=== PATIENT | male | born 1990 | race Caucasian/White ===

== ENCOUNTER 2024-08-25 16:06 | Emergency (ER) | payer OTHER, SELFPAY ==
[2024-08-25] VITALS (7 sets, daily range): BP systolic 127–149; BP diastolic 83–99; PULSE 89–97; RESP 15–18; TEMP 36.2–36.6; O2SAT 99–100
--- NOTE | 2024-08-25 17:55 | PC.NURSE ---
Brien from [place] [facility] called requesting pt update. Pt not in room yet, told to call w/ any questions: [phone]
--- NOTE | 2024-08-25 18:05 | ED.CHESTPAIN ---
HPI - Chest Pain General Chief Complaint: Dizziness <Rosa Maria Hernández APRN - Last Filed: 08/25/24 18:10> Stated Complaint: dizziness after cocaine <Rosa Maria Hernández APRN - Last Filed: 08/25/24 18:10> Time Seen by Provider: 08/25/24 17:50 <Rosa Maria Hernández APRN - Last Filed: 08/25/24 18:10> Focused HPI: Patient is a 33-year-old male who presents to the ER after ?doing too much coke. He reports he snorted and ate it this time. Patient reports he immediately felt dizzy and has started experiencing chest heaviness and slight shortness of breath since then. He reports he used these drugs around 3:30 p.m. Patient is unsure whether not this cocaine was laced with anything else, but he thinks his symptoms are due to the large amount he used. He denies any other medical history besides having hiatal hernia repair approximately 3 and half weeks ago. GENERAL: Well-appearing, well-nourished, and in no acute distress. HEAD: Normocephalic, atraumatic. CHEST: Clear to auscultation. ?No respiratory distress. HEART: Regular rate and rhythm.? NEURO: ?Alert and oriented x3. Patient screened in triage and initial orders placed.? ?Additional care and disposition to be based upon?diagnostic testing and treatment. <Rosa Maria Hernández APRN - Last Filed: 08/25/24 18:10> History of Present Illness HPI narrative: Agree with the above HPI. Of note, patient had a hiatal hernia repair at [facility] 3 weeks ago. He does have 2 incisions to his abdomen with some dehiscence but followed up with his surgeon last week which states they are healing ok. No fevers or remarkable drainage. Patient also notes he had 3 beers throughout the day today. He normally drinks once a week. <Margarita Graham PA-C - Last Filed: 08/25/24 22:13> Related Data Allergies/Adverse Reactions: Allergies Allergy/AdvReac Type Severity Reaction Status Date / Time benzoyl peroxide Allergy Hives Verified 08/25/24 18:20 <Rosa Maria Hernández APRN - Last Filed: 08/25/24 18:10> Review of Systems Review of Systems: All systems reviewed & are unremarkable except as noted in HPI and below <Margarita Graham PA-C - Last Filed: 08/25/24 22:13> Exam Narrative: GENERAL: Well-appearing, well-nourished, and in no acute distress. HEAD: Normocephalic, atraumatic. EYES: Dilated pupils, PERRLA, EOMI ENT: Nares clear, no rhinorrhea or epistaxis. Mucous membranes moist. NECK: Supple. CHEST: Clear to auscultation. No respiratory distress. HEART: Regular rate and rhythm. No murmur heard. Normal peripheral pulses. ABDOMEN: Soft, nontender, nondistended, normal active bowel sounds. EXTREMITIES: Normal range of motion. No edema. Negative Homans bilaterally SKIN: Several small postoperative incisions, most of which are healing well. Mild wound dehiscence to an incision to the RUQ and LUQ, no deep structures or foreign bodies visualized, no surrounding erythema or warmth, no fluctuance or induration. NEURO: No focal deficits. Alert and oriented x3 <Margarita Graham PA-C - Last Filed: 08/25/24 22:13> Course Vital Signs Vital signs: Vital Signs Temperature 97.5 F L 08/25/24 16:26 Pulse Rate 97 08/25/24 16:26 Respiratory Rate 18 08/25/24 16:26 Blood Pressure 149/99 H 08/25/24 16:26 Pulse Oximetry 99 08/25/24 16:26 Oxygen Delivery Room Air 08/25/24 16:26 Temperature 97.8 F 08/25/24 18:21 Pulse Rate 91 08/25/24 19:44 Respiratory Rate 17 08/25/24 19:44 Blood Pressure 133/89 08/25/24 19:44 Pulse Oximetry 99 08/25/24 19:44 Oxygen Delivery Room Air 08/25/24 18:21 <Rosa Maria Hernández APRN - Last Filed: 08/25/24 18:10> Vital Signs Temperature 97.5 F L 08/25/24 16:26 Pulse Rate 97 08/25/24 16:26 Respiratory Rate 18 08/25/24 16:26 Blood Pressure 149/99 H 08/25/24 16:26 Pulse Oximetry 99 08/25/24 16:26 Oxygen Delivery Room Air 08/25/24 16:26 Temperature 97.8 F 08/25/24 18:21 Pulse Rate 91 08/25/24 19:44 Respiratory Rate 17 08/25/24 19:44 Blood Pressure 133/89 08/25/24 19:44 Pulse Oximetry 99 08/25/24 19:44 Oxygen Delivery Room Air 08/25/24 18:21 <Margarita Graham PA-C - Last Filed: 08/25/24 22:13> MDM - Chest Pain MDM Narrative Medical decision making narrative: 33-year-old male presents to emergency department for concerns for cocaine overdose after using 5 g of cocaine over the past 2 days. His last use was at 3:30 p.m.. States 10-15 minutes after he used cocaine at 3:30 a.m. he began developing chest tightness, dizziness and mild shortness of breath. He states he is having very mild residual chest tightness, the lightheadedness has since improved but he is having residual nausea. Triage vitals with elevated blood pressure, otherwise unremarkable. Exam is significant for the above. Notably patient underwent hiatal hernia repair [facility] 3 weeks ago. He does have 2 wounds to his abdomen with poor wound closure as noted in exam, however no deep structures or foreign bodies visualized there are is no secondary signs of infection. Patient states that he followed up with his surgeon last week regarding his wounds and was told they are healing well and to apply Band-Aids. EKG shows normal sinus rhythm with rate of 74, normal [place] interval, normal QRS duration, normal QTC, nonspecific T-wave abnormalities, no ST elevations or depressions. Troponin and delta troponin are within normal limits. D-dimer less than 0.27, wells score is low risk. Chest x-ray shows no acute cardiopulmonary findings. CK within normal limits. UDS positive for cocaine and marijuana. Patient updated on results. Presentation consistent with cocaine abuse. He received IV fluids with improvement. Notably, patient did develop a warm and blanching erythematous rash to his bilateral upper and lower extremities. Rash is not itchy and nontender. I suspect this is secondary to vascular spasms from cocaine use. Overall, patient is reporting significant improvement. He is ready to be discharged home. I advised him to discontinue all drug use and follow-up with a surgeon regarding his wounds. Discussed return precautions. He is agreeable with the plan verbalized understanding. Discharged in stable condition. <Margarita Graham PA-C - Last Filed: 08/25/24 22:13> Lab Data Result diagrams: 08/25/24 18:29 08/25/24 18:29 <Rosa Maria Hernández APRN - Last Filed: 08/25/24 18:10> Labs: Lab Results 08/25/24 08/25/24 08/25/24 Range/Units 18:29 20:36 21:11 WBC 11.3 H (4.5-10.0) K/mm3 RBC 5.38 (4.6-6.20) M/mm3 Hgb 14.5 (14.0-18.0) g/dL Hct 45.1 (42.0-52.0) % MCV 83.8 (80-100) fl MCH 27.0 (26-34) pg MCHC 32.2 (32-36) g/dl RDW 14.2 (11.5-14.5) % Plt Count 326 (150-375) k/mm3 MPV 9.8 (7.4-10.4) fl Immature Gran % (Auto) 0.4 (0-0.5) % Neut % (Auto) 77.9 H (45.5-73.1) % Lymph % (Auto) 12.9 L (18.3-44.2) % [place] % (Auto) 6.8 (2.6-8.5) % Eos % (Auto) 1.7 (0-4.4) % Baso % (Auto) 0.3 (0.2-1.2) % Lymph # (Auto) 1.45 (0.9-3.2) K/mm3 [place] # (Auto) 0.8 H (0.1-0.6) K/mm3 Eos # (Auto) 0.2 (0-0.3) K/mm3 Baso # (Auto) 0.0 (0.0-0.1) K/mm3 Abs Immat Gran (auto) 0.04 H (0.00-0.031) K/mm3 Absolute Neuts (auto) 8.8 H (1.3-6.7) K/mm3 Absolute Nucleated RBC 0.000 (0.0-0.012) K/mm3 Nucleated RBC % 0.0 (0.0-0.2) % PT 14.5 (11.1-14.7) Seconds INR 1.1 APTT 26.7 (22.3-36.8) Seconds D-Dimer < 0.27 (<0.48) ug/mL Sodium 138 (137-145) mmol/L Potassium 3.9 (3.4-5.0) mmol/L Chloride 100 (98-107) mmol/L Carbon Dioxide 22 (22-30) mmol/L Anion Gap 16 H (4-12) mmol/L BUN 14 (9-20) mg/dL Creatinine 0.87 (0.7-1.3) mg/dL Estim Creat Clear Calc 114 ml/min Estimated GFR > 60 (59 - ) Glucose 92 (65-110) mg/dL Calcium 10.0 (8.4-10.2) mg/dL Total Bilirubin 1.0 (0.2-1.3) mg/dL AST 26 (17-59) U/L ALT 22 (6-50) U/L Alkaline Phosphatase 88 (38-126) U/L Total Creatine Kinase 163 (55-170) U/L Troponin I < 0.012 < 0.012 (0.000-0.034) ng/mL Total Protein 8.0 (6.3-8.2) g/dL Albumin 4.8 (3.5-5.1) g/dL Urine Color Yellow (Yellow) Urine Appearance Clear (Clear) Urine pH 5.5 (5.0-9.0) Ur Specific [place] 1.008 (1.001-1.035) Urine Protein Negative (Negative) mg/dL Urine Glucose (UA) Negative (Negative) mg/dL Urine Ketones 2+ H (Negative) mg/dL Ur Blood (Man) Negative (Negative) Urine Nitrate Negative (Negative) Urine Bilirubin Negative (Negative) Urine Urobilinogen 0.2 (<2.0) mg/dL Leukocyte Esterase Rfl Negative (Negative) MIRNA/UL Urine Opiates Screen Negative (Negative) Urine Methadone Screen Negative (Negative) Ur Barbiturates Screen Negative (Negative) Ur Phencyclidine Scrn Negative (Negative) Ur Amphetamine Screen Negative (Negative) U Benzodiazepines Scrn Negative (Negative) Urine Cocaine Screen Positive A (Negative) U Cannabinoids Screen Positive A (Negative) <Rosa Maria Hernández, BD [employer] - Last Filed: 08/25/24 18:10> Lab Results 08/25/24 08/25/24 08/25/24 Range/Units 18:29 20:36 21:11 WBC 11.3 H (4.5-10.0) K/mm3 RBC 5.38 (4.6-6.20) M/mm3 Hgb 14.5 (14.0-18.0) g/dL Hct 45.1 (42.0-52.0) % MCV 83.8 (80-100) fl MCH 27.0 (26-34) pg MCHC 32.2 (32-36) g/dl RDW 14.2 (11.5-14.5) % Plt Count 326 (150-375) k/mm3 MPV 9.8 (7.4-10.4) fl Immature Gran % (Auto) 0.4 (0-0.5) % Neut % (Auto) 77.9 H (45.5-73.1) % Lymph % (Auto) 12.9 L (18.3-44.2) % [place] % (Auto) 6.8 (2.6-8.5) % Eos % (Auto) 1.7 (0-4.4) % Baso % (Auto) 0.3 (0.2-1.2) % Lymph # (Auto) 1.45 (0.9-3.2) K/mm3 [place] # (Auto) 0.8 H (0.1-0.6) K/mm3 Eos # (Auto) 0.2 (0-0.3) K/mm3 Baso # (Auto) 0.0 (0.0-0.1) K/mm3 Abs Immat Gran (auto) 0.04 H (0.00-0.031) K/mm3 Absolute Neuts (auto) 8.8 H (1.3-6.7) K/mm3 Absolute Nucleated RBC 0.000 (0.0-0.012) K/mm3 Nucleated RBC % 0.0 (0.0-0.2) % PT 14.5 (11.1-14.7) Seconds INR 1.1 APTT 26.7 (22.3-36.8) Seconds D-Dimer < 0.27 (<0.48) ug/mL Sodium 138 (137-145) mmol/L Potassium 3.9 (3.4-5.0) mmol/L Chloride 100 (98-107) mmol/L Carbon Dioxide 22 (22-30) mmol/L Anion Gap 16 H (4-12) mmol/L BUN 14 (9-20) mg/dL Creatinine 0.87 (0.7-1.3) mg/dL Estim Creat Clear Calc 114 ml/min Estimated GFR > 60 (59 - ) Glucose 92 (65-110) mg/dL Calcium 10.0 (8.4-10.2) mg/dL Total Bilirubin 1.0 (0.2-1.3) mg/dL AST 26 (17-59) U/L ALT 22 (6-50) U/L Alkaline Phosphatase 88 (38-126) U/L Total Creatine Kinase 163 (55-170) U/L Troponin I < 0.012 < 0.012 (0.000-0.034) ng/mL Total Protein 8.0 (6.3-8.2) g/dL Albumin 4.8 (3.5-5.1) g/dL Urine Color Yellow (Yellow) Urine Appearance Clear (Clear) Urine pH 5.5 (5.0-9.0) Ur Specific [place] 1.008 (1.001-1.035) Urine Protein Negative (Negative) mg/dL Urine Glucose (UA) Negative (Negative) mg/dL Urine Ketones 2+ H (Negative) mg/dL Ur Blood (Man) Negative (Negative) Urine Nitrate Negative (Negative) Urine Bilirubin Negative (Negative) Urine Urobilinogen 0.2 (<2.0) mg/dL Leukocyte Esterase Rfl Negative (Negative) MIRNA/UL Urine Opiates Screen Negative (Negative) Urine Methadone Screen Negative (Negative) Ur Barbiturates Screen Negative (Negative) Ur Phencyclidine Scrn Negative (Negative) Ur Amphetamine Screen Negative (Negative) U Benzodiazepines Scrn Negative (Negative) Urine Cocaine Screen Positive A (Negative) U Cannabinoids Screen Positive A (Negative) <Margarita Graham PA-C - Last Filed: 08/25/24 22:13> Discharge Plan Discharge Clinical Impression: Cocaine abuse <Rosa Maria Hernández APRN - Last Filed: 08/25/24 18:10> Patient Disposition: Home, Self-Care <Rosa Maria Hernández APRN - Last Filed: 08/25/24 18:10> Condition: Stable <Rosa Maria Hernández APRN - Last Filed: 08/25/24 18:10> Instructions: Antibiotic Form, Cocaine Use Disorder (ED) <Rosa Maria Hernández APRN - Last Filed: 08/25/24 18:10> Additional Instructions: Please stop using drugs. Please make sure to follow-up with your surgeon regarding your wounds. Return to the emergency department if you develop chest pain, shortness of breath, redness, drainage from her wounds, fever or other concerning symptoms. <Rosa Maria Hernández APRN - Last Filed: 08/25/24 18:10> Patient Language: Fijian <Rosa Maria Hernández APRN - Last Filed: 08/25/24 18:10> Follow-up/Referrals: Blake,Andrés Cordova MD [Non-Staff] - <Rosa Maria Hernández APRN - Last Filed: 08/25/24 18:10>
[2024-08-25 18:36] LABS: Basophils Percent Auto 0.3 % (0.2-1.2); Eosinophils Absolute Auto 0.2 K/mm3 (0-0.3); Eosinophils Percent Auto 1.7 % (0-4.4); Hematocrit 45.1 % (42.0-52.0); Hemoglobin 14.5 g/dL (14.0-18.0); Immature Granulocyte Absolute 0.04 K/mm3 (0.00-0.031); Immature Granulocyte Percent A 0.4 % (0-0.5); Lymphocytes Absolute Auto 1.45 K/mm3 (0.9-3.2); Lymphocytes Percent Auto 12.9 % (18.3-44.2); Mean Corpuscular HGB Conc 32.2 g/dl (32-36); Mean Corpuscular Volume 83.8 fl (80-100); Mean Platelet Volume 9.8 fl (7.4-10.4); Monocytes Absolute Auto 0.8 K/mm3 (0.1-0.6); Monocytes Percent Auto 6.8 % (2.6-8.5); Neutrophils Absolute Auto 8.8 K/mm3 (1.3-6.7); Neutrophils Percent Auto 77.9 % (45.5-73.1); Platelet Count Result 326 k/mm3 (150-375); Red Blood Count 5.38 M/mm3 (4.6-6.20); Red Cell Distribution Width 14.2 % (11.5-14.5); White Blood Count 11.3 K/mm3 (4.5-10.0)
[2024-08-25 18:47] LABS: Alanine Aminotransferase 22 U/L (6-50); Albumin Level 4.8 g/dL (3.5-5.1); Alkaline Phosphatase 88 U/L (38-126); Anion Gap 16 mmol/L (4-12); Aspartate Amino Transferase 26 U/L (17-59); Blood Urea Nitrogen 14 mg/dL (9-20); Carbon Dioxide 22 mmol/L (22-30); Chloride 100 mmol/L (98-107); Estimated CRCL calculation 114 ml/min; Estimated Glomerular Filt Rate > 60; Glucose 92 mg/dL (65-110); Potassium 3.9 mmol/L (3.4-5.0); Sodium 138 mmol/L (137-145)
[2024-08-25 18:59] LABS: Troponin I < 0.012 ng/mL (0.000-0.034)
[2024-08-25 19:42] LABS: INR 1.1; Prothrombin Time 14.5 Seconds (11.1-14.7)
[2024-08-25 19:43] LABS: Partial Thromboplastin Time 26.7 Seconds (22.3-36.8)
[2024-08-25 19:46] LABS: D Dimer < 0.27 ug/mL (<0.48)
[2024-08-25] MEDS: SODIUM CHLORIDE 0.9% IV 1,000 ML 999 ML IV CONT (19:46)
--- NOTE | 2024-08-25 19:48 | PC.NURSE ---
This RN tried to collect urine sample from pt. pt states i cant go. i just went before i came back
--- NOTE | 2024-08-25 20:09 | PC.NURSE ---
This RN spoke with RN at [place] [facility]. Poison control suggested a CPK. updated on the rest of pt labs and EKG
[2024-08-25 20:49] LABS: Add Urine Microscopic? NO; Appearance Urine Clear (Clear); Bilirubin Urine Negative (Negative); Blood Urine Negative (Negative); Color Urine Yellow (Yellow); Glucose Urine UA Negative (Negative); Ketones Urine 2+ mg/dL (Negative); Leukocyte Esterase Ur Negative LEU/UL (Negative); Nitrate Urine Negative (Negative); Protein Urine Negative (Negative); Specific Grav Ur 1.008 (1.001-1.035); Urobilinogen Urine 0.2 mg/dL (<2.0); pH Urine 5.5 (5.0-9.0)
[2024-08-25 21:04] LABS: Creatine Kinase 163 U/L (55-170)
[2024-08-25 21:37] LABS: Troponin I < 0.012 ng/mL (0.000-0.034)
[2024-08-25 22:00] LABS: Amphetamine Screen Urine Negative (Negative); Barbiturate Screen Urine Negative (Negative); Benzodiazepines Screen Urine Negative (Negative); Cannabinoid Screen Urine Positive (Negative); Cocaine Screen Urine Positive (Negative); Methadone Screen Urine Negative (Negative); Opiate Screen Urine Negative (Negative); Phencyclidine Screen Urine Negative (Negative)
--- NOTE | 2024-08-25 22:20 | PC.NURSE ---
This RN spoke with Gissel from [place] [facility]. Gissel was updated with recent labs and condition. Gissel closed pt case
== END 2024-08-25 22:30 | disposition home or self-care (01) ==
PROVIDERS: Registered Nurse; Emergency Provider Physician Assistant
DX: F14.10 Cocaine abuse, uncomplicated (principal)
CPT/HCPCS: 36415; 71046; 80053; 80307; 81003; 82550; 84484; 85025; 85380; 85610; 85730; 93005; 96360; 99284; J7030